=== PATIENT | male | born 1945 | race Caucasian/White ===

== ENCOUNTER 2020-11-15 13:57 | Outpatient (REF) | payer MEDICARE, SELFPAY ==
[2020-11-15 14:44] LABS: MANUAL DIFF FLAG NO
[2020-11-15 14:48] LABS: Basophils Absolute Auto 0.1 X10*3/uL (0.0-0.2); Basophils Percent Auto 0.6 % (0-2); Eosinophils Absolute Auto 0.6 X10*3/uL (0.0-0.4); Eosinophils Percent Auto 4.9 % (0-4); Hematocrit 49.8 % (42-52); Hemoglobin 16.4 g/dl (14.0-18.0); Imm Gran Abs Auto 0.04 X10*3/uL (0.00-0.03); Imm Gran Pct Auto 0.3 % (0.0-0.4); Lymphocytes Absolute Auto 3.9 X10*3/uL (1.2-4.9); Lymphocytes Percent Auto 32.3 % (20-40); Mean Corpuscular HGB Conc 32.9 g/dl (31.0-36.0); Mean Corpuscular Hemoglobin 29.5 pg (27.0-33.0); Mean Corpuscular Volume 89.6 fL (80-98); Mean Platelet Volume 11.4 fL (9.4-12.4); Monocytes Absolute Auto 1.2 X10*3/uL (0.1-1.2); Monocytes Percent Auto 9.6 % (2-11); Neutrophils Absolute Auto 6.3 X10*3/uL (2.0-8.3); Neutrophils Percent Auto 52.3 % (45-73); Platelet Count 248 X10*3/uL (160-400); Red Blood Count 5.56 X10*6/uL (4.60-5.80); Red Cell Distribution Width 14.3 % (11.0-16.0); White Blood Count 12.1 X10*3/uL (4.8-10.8)
[2020-11-15 15:13] LABS: Estimated Average Glucose 171 mg/dL; Hemoglobin A1c % 7.6 %
[2020-11-15 15:15] LABS: Alanine Aminotransferase 23 U/L (0-40); Albumin Level 4.2 g/dL (3.5-5.0); Alkaline Phosphatase 86 U/L (39-117); Anion Gap 14 (12-20); Aspartate Amino Transferase 19 U/L (5-37); Bilirubin Total 0.6 mg/dL (0.0-1.0); Blood Urea Nitrogen 20 mg/dL (9-16); Calcium 9.6 mg/dL (8.4-10.2); Carbon Dioxide 28 mmol/L (22-29); Chloride 105 mmol/L (96-108); Estimated Glomerular Filt Rate 56; Glucose Random 107 mg/dL (60-115); Potassium 4.9 mmol/l (3.3-5.1); Sodium 142 mmol/L (135-145); Total Protein 7.4 g/dL (6.5-8.0)
[2020-11-15 15:35] LABS: Prostate Specific Antigen 0.51 ng/mL (<0.05-4.0)
== END 2020-11-15 13:58 | disposition home or self-care (01) ==
LOC: HO.LAB 13:57
PROVIDERS: PCP Internal Medicine; Visit Provider Internal Medicine
DX: E11.22 Type 2 diabetes mellitus with diabetic chronic kidney disease (principal); I13.10 Hypertensive heart and chronic kidney disease without heart failure, with stage 1 through stage 4 chronic kidney disease, or unspecified chronic kidney disease; N18.9 Chronic kidney disease, unspecified; I25.10 Atherosclerotic heart disease of native coronary artery without angina pectoris; Z12.5 Encounter for screening for malignant neoplasm of prostate; Z85.46 Personal history of malignant neoplasm of prostate
CPT/HCPCS: 36415; 80053; 83036; 84153; 85025

== ENCOUNTER 2020-12-08 13:46 | Outpatient (REF) | payer MEDICARE, SELFPAY ==
[2020-12-08 15:24] LABS: Anion Gap 17 (12-20); Blood Urea Nitrogen 17 mg/dL (9-16); Carbon Dioxide 25 mmol/L (22-29); Chloride 103 mmol/L (96-108); Estimated Glomerular Filt Rate 57; Potassium 4.8 mmol/L (3.3-5.1); Sodium 140 mmol/L (135-145)
== END 2020-12-08 13:47 | disposition home or self-care (01) ==
LOC: HO.LAB 13:46
PROVIDERS: PCP Internal Medicine; Visit Provider Internal Medicine Hypertension Specialist
DX: N18.30 Chronic kidney disease, stage 3 unspecified (principal)
CPT/HCPCS: 36415; 80051; 82565; 84520

== ENCOUNTER 2021-01-18 11:26 | Outpatient (REF) | payer MEDICARE, SELFPAY ==
[2021-01-18 12:12] LABS: MANUAL DIFF FLAG NO
[2021-01-18 12:19] LABS: Basophils Absolute Auto 0.1 X10*3/uL (0.0-0.2); Basophils Percent Auto 0.5 % (0-2); Eosinophils Absolute Auto 0.5 X10*3/uL (0.0-0.4); Eosinophils Percent Auto 4.5 % (0-4); Hematocrit 47.3 % (42-52); Hemoglobin 15.4 g/dl (14.0-18.0); Imm Gran Abs Auto 0.03 X10*3/uL (0.00-0.03); Imm Gran Pct Auto 0.3 % (0.0-0.4); Lymphocytes Absolute Auto 3.4 X10*3/uL (1.2-4.9); Lymphocytes Percent Auto 28.3 % (20-40); Mean Corpuscular HGB Conc 32.6 g/dl (31.0-36.0); Mean Corpuscular Hemoglobin 29.7 pg (27.0-33.0); Mean Corpuscular Volume 91.3 fL (80-98); Mean Platelet Volume 11.4 fL (9.4-12.4); Monocytes Absolute Auto 1.1 X10*3/uL (0.1-1.2); Monocytes Percent Auto 9.4 % (2-11); Neutrophils Absolute Auto 6.8 X10*3/uL (2.0-8.3); Platelet Count 256 X10*3/uL (160-400); Red Blood Count 5.18 X10*6/uL (4.60-5.80); Red Cell Distribution Width 14.6 % (11.0-16.0); White Blood Count 11.9 X10*3/uL (4.8-10.8)
[2021-01-18 12:31] LABS: Estimated Average Glucose 166 mg/dL; Hemoglobin A1c % 7.4 %
[2021-01-18 13:33] LABS: B Type Natriuretic Peptide < 10 pg/mL (<100)
[2021-01-18 13:43] LABS: Alanine Aminotransferase 24 U/L (0-40); Albumin Level 4.4 g/dL (3.5-5.0); Alkaline Phosphatase 75 U/L (39-117); Anion Gap 16 (12-20); Aspartate Amino Transferase 17 U/L (5-37); Bilirubin Total 0.7 mg/dL (0.0-1.0); Blood Urea Nitrogen 24 mg/dL (9-16); Calcium 9.3 mg/dL (8.4-10.2); Carbon Dioxide 27 mmol/L (22-29); Chloride 101 mmol/L (96-108); Estimated Glomerular Filt Rate 46; Glucose Random 136 mg/dL (60-115); Potassium 4.1 mmol/L (3.3-5.1); Sodium 140 mmol/L (135-145); Total Protein 7.4 g/dL (6.5-8.0)
[2021-01-18 13:51] LABS: Thyroid Stimulating Hormone 1.79 uIU/mL (0.32-4.0)
== END 2021-01-18 11:27 | disposition home or self-care (01) ==
LOC: HO.LAB 11:26
PROVIDERS: PCP Internal Medicine; Visit Provider Internal Medicine
DX: R60.9 Edema, unspecified (principal); I12.9 Hypertensive chronic kidney disease with stage 1 through stage 4 chronic kidney disease, or unspecified chronic kidney disease; E11.22 Type 2 diabetes mellitus with diabetic chronic kidney disease; N18.9 Chronic kidney disease, unspecified
CPT/HCPCS: 36415; 80053; 83036; 83880; 84443; 85025

== ENCOUNTER 2021-02-14 15:38 | Outpatient (REF) | payer MEDICARE, SELFPAY ==
[2021-02-14 16:32] LABS: Anion Gap 13 (12-20); Blood Urea Nitrogen 15 mg/dL (9-16); Carbon Dioxide 25 mmol/L (22-29); Chloride 104 mmol/L (96-108); Estimated Glomerular Filt Rate > 60; Glucose Random 125 mg/dL (60-115); Potassium 4.2 mmol/L (3.3-5.1); Sodium 138 mmol/L (135-145)
== END 2021-02-14 15:39 | disposition home or self-care (01) ==
LOC: HO.LAB 15:38
PROVIDERS: PCP Internal Medicine; Visit Provider Internal Medicine
DX: I12.9 Hypertensive chronic kidney disease with stage 1 through stage 4 chronic kidney disease, or unspecified chronic kidney disease (principal); N18.9 Chronic kidney disease, unspecified; R60.0 Localized edema
CPT/HCPCS: 36415; 80048

== ENCOUNTER 2021-02-22 08:05 | Outpatient (REF) | payer MEDICARE, SELFPAY | END 2021-02-22 08:06 | disposition home or self-care (01) | LOC: HO.HOSX 08:05 | PROVIDERS: Visit Provider Physician Assistant | DX: Z13.89 Encounter for screening for other disorder (principal) ==

== ENCOUNTER 2021-02-28 08:05 | Outpatient (REF) | payer MEDICARE, SELFPAY ==
--- NOTE | ~2021-02-28 | XR_ITS ---
EXAMINATION: XR SHOULDER , LEFT CLINICAL INFORMATION: Pain COMPARISON: None available at the time of this dictation. TECHNIQUE: AP external rotation, Grashey, scapular Y, and axillary views of the shoulder. FINDINGS: BONES: Small cortical irregularity in the humeral head superiorly suggesting a small Hill sack which could be sequela of prior anterior dislocation. JOINTS: Glenohumeral joint is properly positioned. There is mild degenerative osteoarthritis of the acromioclavicular joint. SOFT TISSUE AND INCLUDED LUNG: Normal. XR/XR shoulder LT min 2V IMPRESSION: Subtle cortical irregularity in the humeral head superiorly suggesting Hill-Sachs deformity which can be a sequela of prior anterior dislocation. Mild DJD AC joint.
== END 2021-02-28 08:06 | disposition home or self-care (01) ==
LOC: HO.HOSX 08:05
PROVIDERS: Visit Provider Physician Assistant
DX: M75.42 Impingement syndrome of left shoulder (principal); E13.9 Other specified diabetes mellitus without complications
CPT/HCPCS: 20610; 73030; 99212; J1020

== ENCOUNTER 2021-05-30 14:49 | Outpatient (REF) | payer MEDICARE, SELFPAY ==
[2021-05-30 15:32] LABS: MANUAL DIFF FLAG NO
[2021-05-30 15:43] LABS: Basophils Absolute Auto 0.1 X10*3/uL (0.0-0.2); Basophils Percent Auto 0.4 % (0-2); Eosinophils Absolute Auto 0.5 X10*3/uL (0.0-0.4); Eosinophils Percent Auto 4.6 % (0-4); Hemoglobin 15.8 g/dl (14.0-18.0); Imm Gran Abs Auto 0.03 X10*3/uL (0.00-0.03); Imm Gran Pct Auto 0.3 % (0.0-0.4); Lymphocytes Absolute Auto 3.8 X10*3/uL (1.2-4.9); Lymphocytes Percent Auto 33.7 % (20-40); Mean Corpuscular HGB Conc 32.2 g/dl (31.0-36.0); Mean Corpuscular Hemoglobin 28.9 pg (27.0-33.0); Mean Corpuscular Volume 89.6 fL (80-98); Mean Platelet Volume 11.7 fL (9.4-12.4); Monocytes Absolute Auto 0.9 X10*3/uL (0.1-1.2); Monocytes Percent Auto 7.9 % (2-11); Neutrophils Percent Auto 53.1 % (45-73); Platelet Count 247 X10*3/uL (160-400); Red Blood Count 5.47 X10*6/uL (4.60-5.80); Red Cell Distribution Width 14.3 % (11.0-16.0); White Blood Count 11.3 X10*3/uL (4.8-10.8)
[2021-05-30 15:56] LABS: Alanine Aminotransferase 17 U/L (0-40); Alkaline Phosphatase 87 U/L (39-117); Anion Gap 12 (12-20); Aspartate Amino Transferase 17 U/L (5-37); Bilirubin Total 0.7 mg/dL (0.0-1.0); Blood Urea Nitrogen 19 mg/dL (9-16); Calcium 9.4 mg/dL (8.4-10.2); Carbon Dioxide 25 mmol/L (22-29); Chloride 105 mmol/L (96-108); Estimated Glomerular Filt Rate 56; Glucose Random 139 mg/dL (60-115); Potassium 4.3 mmol/L (3.3-5.1); Sodium 138 mmol/L (135-145); Total Protein 7.1 g/dL (6.5-8.0)
[2021-05-31 13:37] LABS: Calcium (PTHI) 9.3 mg/dL (8.6-10.3); PTHI 157 pg/mL (14-64)
== END 2021-05-30 14:50 | disposition home or self-care (01) ==
LOC: HO.LAB 14:49
PROVIDERS: PCP Internal Medicine; Visit Provider Internal Medicine Hypertension Specialist
DX: N18.31 Chronic kidney disease, stage 3a (principal)
CPT/HCPCS: 36415; 80053; 83970; 85025

== ENCOUNTER 2021-05-31 17:04 | Outpatient (REF) | payer MEDICARE, SELFPAY ==
--- NOTE | ~2021-05-31 | XR_ITS ---
EXAMINATION: XR FOREARM, LEFT CLINICAL INFORMATION: Pain. COMPARISON: None TECHNIQUE: AP and lateral views of the left forearm were obtained. FINDINGS: The bones and soft tissues are normal. No fracture. Imaged portions of the elbow and wrist are unremarkable. XR/XR forearm LT 2V IMPRESSION: Normal left forearm.
[2021-05-31 17:41] LABS: Basophils Absolute Auto 0.1 X10*3/uL (0.0-0.2); Basophils Percent Auto 0.6 % (0-2); Eosinophils Absolute Auto 0.5 X10*3/uL (0.0-0.4); Eosinophils Percent Auto 4.1 % (0-4); Hematocrit 47.6 % (42-52); Hemoglobin 15.5 g/dl (14.0-18.0); Imm Gran Abs Auto 0.05 X10*3/uL (0.00-0.03); Imm Gran Pct Auto 0.4 % (0.0-0.4); Lymphocytes Absolute Auto 3.2 X10*3/uL (1.2-4.9); Lymphocytes Percent Auto 25.7 % (20-40); MANUAL DIFF FLAG NO; Mean Corpuscular HGB Conc 32.6 g/dl (31.0-36.0); Mean Corpuscular Hemoglobin 29.1 pg (27.0-33.0); Mean Corpuscular Volume 89.3 fL (80-98); Mean Platelet Volume 11.3 fL (9.4-12.4); Monocytes Percent Auto 7.7 % (2-11); Neutrophils Absolute Auto 7.6 X10*3/uL (2.0-8.3); Neutrophils Percent Auto 61.5 % (45-73); Platelet Count 239 X10*3/uL (160-400); Red Blood Count 5.33 X10*6/uL (4.60-5.80); Red Cell Distribution Width 14.6 % (11.0-16.0); White Blood Count 12.3 X10*3/uL (4.8-10.8)
[2021-05-31 18:01] LABS: Estimated Average Glucose 180 mg/dL; Hemoglobin A1c % 7.9 %
[2021-05-31 18:03] LABS: Alanine Aminotransferase 17 U/L (0-40); Alkaline Phosphatase 86 U/L (39-117); Anion Gap 15 (12-20); Aspartate Amino Transferase 17 U/L (5-37); Bilirubin Total 0.6 mg/dL (0.0-1.0); Blood Urea Nitrogen 18 mg/dL (9-16); C Reactive Protein 2.84 mg/dL (< or = 0.50); Calcium 9.4 mg/dL (8.4-10.2); Carbon Dioxide 23 mmol/L (22-29); Chloride 107 mmol/L (96-108); Estimated Glomerular Filt Rate 56; Glucose Random 141 mg/dL (60-115); Potassium 4.8 mmol/L (3.3-5.1); Sodium 140 mmol/L (135-145); Total Protein 7.1 g/dL (6.5-8.0)
[2021-05-31 18:23] LABS: Thyroid Stimulating Hormone 1.27 uIU/mL (0.32-4.0)
== END 2021-05-31 17:05 | disposition home or self-care (01) ==
LOC: HO.XRAY 17:04
PROVIDERS: PCP Internal Medicine; Visit Provider Internal Medicine
DX: M79.632 Pain in left forearm (principal); R60.0 Localized edema; N18.9 Chronic kidney disease, unspecified; E11.9 Type 2 diabetes mellitus without complications; Z91.81 History of falling
CPT/HCPCS: 36415; 73090; 80053; 83036; 84443; 85025; 86140

== ENCOUNTER 2021-06-21 08:15 | Outpatient (REF) | payer MEDICARE, SELFPAY ==
--- NOTE | ~2021-06-21 | XR_ITS ---
EXAMINATION: XR SHOULDER, RIGHT CLINICAL INFORMATION: Right shoulder pain. COMPARISON: None. TECHNIQUE: 3 views of the right shoulder. FINDINGS: There is no evidence of acute fracture or dislocation of the right shoulder. There is spurring about the glenohumeral joint without significant narrowing present. No evidence of calcific tendinitis. No acute fracture or dislocation. There is some degenerative spurring about the acromioclavicular joint without evidence of the coracoclavicular space. XR/XR shoulder RT min 2V IMPRESSION: No acute fracture or dislocation of the right shoulder. Degenerative spurring about the glenohumeral joint.
== END 2021-06-21 08:16 | disposition home or self-care (01) ==
LOC: HO.HOSX 08:15
PROVIDERS: Visit Provider Physician Assistant
DX: M25.511 Pain in right shoulder (principal); M54.12 Radiculopathy, cervical region; R20.0 Anesthesia of skin; R20.2 Paresthesia of skin
CPT/HCPCS: 73030; 99212

== ENCOUNTER → 2021-07-23 13:46 | Outpatient (BNVA) | payer MEDICARE, SELFPAY | PROVIDERS: PCP Internal Medicine; Visit Provider Internal Medicine | DX: M54.12 Radiculopathy, cervical region (principal); M96.1 Postlaminectomy syndrome, not elsewhere classified; M48.062 Spinal stenosis, lumbar region with neurogenic claudication | CPT/HCPCS: 99202 ==

== ENCOUNTER 2021-08-08 13:24 | Outpatient (REF) | payer MEDICARE, SELFPAY | END 2021-08-08 13:25 | disposition home or self-care (01) | LOC: HO.MRI 13:24 | PROVIDERS: PCP Internal Medicine; Visit Provider Internal Medicine | DX: Z13.89 Encounter for screening for other disorder (principal) ==

== ENCOUNTER 2021-08-30 09:37 | Outpatient (REF) | payer MEDICARE, SELFPAY ==
--- NOTE | 2021-08-30 09:39 | EMG_ITS ---
Bilateral median and ulnar motor and sensory studies were performed. Bilateral radial sensory studies were performed and paraspinal muscles were tested with a needle. IMPRESSION: There was no evidence of cervical radiculopathy. The test revealed [id number] bilateral median neuropathy across carpal tunnel and mild bilateral ulnar neuropathy across cubital tunnel. 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 MD ELAI Montes/IVAN / [id number]
== END 2021-08-30 09:38 | disposition home or self-care (01) ==
LOC: HO.NEURO 09:37
PROVIDERS: PCP Internal Medicine; Visit Provider Physician Assistant
DX: R20.0 Anesthesia of skin (principal); R20.2 Paresthesia of skin
CPT/HCPCS: 95886; 95911

== ENCOUNTER → 2021-08-31 11:01 | Outpatient (BNVA) | payer MEDICARE, SELFPAY | PROVIDERS: PCP Internal Medicine; Visit Provider Internal Medicine | DX: M47.812 Spondylosis without myelopathy or radiculopathy, cervical region (principal); M48.062 Spinal stenosis, lumbar region with neurogenic claudication; G56.03 Carpal tunnel syndrome, bilateral upper limbs | CPT/HCPCS: Q3014 ==

== ENCOUNTER 2021-09-13 14:17 | Outpatient (REF) | payer MEDICARE, SELFPAY ==
--- NOTE | ~2021-09-13 | XR_ITS ---
EXAMINATION: XR CERVICAL SPINE CLINICAL INFORMATION: Spondylosis without myelopathy or radiculopathy. COMPARISON: None TECHNIQUE: Cervical spine, 4 views FINDINGS: The craniocervical junction is normal. The dens and atlantodental articulation are intact. There is degenerative osseous spurring at the atlantodental articulation. The cervical vertebra have normal height. No fractures are seen within either anterior or posterior elements. The C6 and C7 vertebra are suboptimally visualized on the lateral views due to overlap of the bones with the soft tissues. There is multilevel anterior vertebral osteophyte formation of the cervical spine. Multilevel facet osteoarthritis is present, including C2-C3, C3-C4 and C4-C5. No prevertebral soft tissue swelling. The visualized lung apices are normal. XR/XR cervical spine 3V IMPRESSION: * There are mild and moderate discovertebral degenerative changes of the cervical spine. Also, multilevel facet osteoarthritis is present. * No evidence of cervical spine fracture or malalignment.
== END 2021-09-13 14:18 | disposition home or self-care (01) ==
LOC: HO.XRAY 14:17
PROVIDERS: PCP Internal Medicine; Visit Provider Internal Medicine
DX: M47.812 Spondylosis without myelopathy or radiculopathy, cervical region (principal)
CPT/HCPCS: 72040

== ENCOUNTER → 2021-09-19 12:10 | Outpatient (BNVA) | payer MEDICARE, SELFPAY | PROVIDERS: PCP Internal Medicine; Visit Provider Orthopaedic Surgery | DX: G56.03 Carpal tunnel syndrome, bilateral upper limbs (principal) | CPT/HCPCS: 99202 ==

== ENCOUNTER 2021-10-15 13:39 | Outpatient (REF) | payer MEDICARE, SELFPAY ==
[2021-10-15 15:44] LABS: Anion Gap 14 (12-20); Blood Urea Nitrogen 20 mg/dL (9-16); Calcium 9.9 mg/dL (8.4-10.2); Carbon Dioxide 23 mmol/L (22-29); Chloride 107 mmol/L (96-108); Estimated Glomerular Filt Rate 56; Potassium 4.6 mmol/L (3.3-5.1); Sodium 139 mmol/L (135-145)
== END 2021-10-15 13:40 | disposition home or self-care (01) ==
LOC: HO.LAB 13:39
PROVIDERS: Absent Provider Internal Medicine Hypertension Specialist; PCP Internal Medicine; Visit Provider Internal Medicine
DX: M96.1 Postlaminectomy syndrome, not elsewhere classified (principal); M48.062 Spinal stenosis, lumbar region with neurogenic claudication; M54.12 Radiculopathy, cervical region; E11.22 Type 2 diabetes mellitus with diabetic chronic kidney disease; I12.9 Hypertensive chronic kidney disease with stage 1 through stage 4 chronic kidney disease, or unspecified chronic kidney disease; N18.31 Chronic kidney disease, stage 3a; Z91.041 Radiographic dye allergy status; Z91.013 Allergy to seafood; Z91.09 Other allergy status, other than to drugs and biological substances; Z79.4 Long term (current) use of insulin; Z79.899 Other long term (current) drug therapy
CPT/HCPCS: 36415; 80051; 82310; 82565; 84520; 99212

== ENCOUNTER 2021-12-19 12:15 | Day surgery (SDC) | payer MEDICARE, SELFPAY ==
[2021-11-22 15:14] VITALS: BMI 37.8
--- NOTE | 2021-12-18 11:57 | P.CONAN_ITS ---
Documented by User: Deirdre Bolanos NP 12/18/21 11:59 HPI - Anesthesia Eval Consult details Narrative: 76yo M for Bilateral Minimally invasive lumbar decompression PMFSH Active Problems Active Problems: All Active Problems (Updated 12/18/21 @ 10:45 by Taya Shahid, TANIA) Impingement syndrome of left shoulder (Acute) Diabetes 1.5, managed as type 2 (Acute) Cervical radicular pain (Acute) Carpal tunnel syndrome, bilateral (Acute) Cervical spondylosis (Acute) Spinal stenosis, lumbar region with neurogenic claudication (Acute) Post laminectomy syndrome (Acute) Cervical radiculopathy (Acute) Past Medical History Medical History (Updated 12/18/21 @ 10:45 by Taya Shahid RN) Cataract Cervical radiculopathy Depression GERD (gastroesophageal reflux disease) Hard of hearing High blood pressure IBS (irritable bowel syndrome) 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 Malignant neoplasm of prostate Myocardial infarction Osteoarthritis 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, lumbar region with neurogenic claudication Stage 3 chronic kidney disease Surgical History Surgical History (Updated 11/22/21 @ 15:18 by Tonya Grigsby RN) History of back surgery Hx of colonoscopy Hx of neck surgery Social History Social History Patient Tobacco Use Status: Tobacco use Unknown Are you DNR?: No Advance Directives: No Advance Directives Information Provided: Yes Advance Directives on File: No Current occupational status: retired Current occupation: right hand Meds Allergies Allergy/AdvReac Type Severity Reaction Status Date / Time shellfish derived Allergy Severe SWELLING Verified 11/22/21 15:16 LYMPH GLANDS - BAD RXN Iodinated Contrast Media Allergy Unknown HIVES Verified 11/22/21 15:16 [CONTRAST,IV] ENVIRONMENTAL AdvReac Intermediate NASAL Uncoded 11/22/21 15:16 CONGESTION Home Medications Medication Instructions Recorded Confirmed Last Taken Type aspirin 81 mg tablet,delayed 81 mg PO DAILY 07/23/21 11/22/21 Unknown History release (Adult Aspirin Regimen) clonazepam 1 mg tablet 1 mg PO BID 07/23/21 11/22/21 Unknown History doxepin 25 mg capsule 25 mg PO DAILY 07/23/21 11/22/21 Unknown History insulin aspart U-100 100 unit/mL 20 unit SUBCUT TID 07/23/21 11/22/21 Unknown History (3 mL) subcutaneous pen (Novolog Flexpen U-100 Insulin aspart) insulin glargine 100 unit/mL 60 unit SUBCUT .hs ml 07/23/21 11/22/21 Unknown History subcutaneous solution (Lantus U-100 Insulin) lisinopril 40 mg tablet 40 mg PO DAILY 07/23/21 11/22/21 Unknown History nifedipine 30 mg tablet,extended 30 mg PO DAILY 07/23/21 11/22/21 Unknown History release prochlorperazine maleate 10 mg 10 mg PO BID 07/23/21 11/22/21 Unknown History tablet tramadol 50 mg tablet 50 mg PO BID PRN 07/23/21 11/22/21 Unknown History Exam Exam Date and Time: December 18, 2021 1157 Height,Weight and Vital Signs: Height 6 ft Weight 126.552 kg Documented by User: Allen Neville MD 12/19/21 13:02 [facility] Past Medical History Medical History (Updated 12/18/21 @ 10:45 by Taya Shahid RN) Cataract Cervical radiculopathy Depression GERD (gastroesophageal reflux disease) Hard of hearing High blood pressure IBS (irritable bowel syndrome) 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 Malignant neoplasm of prostate Myocardial infarction Osteoarthritis 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, lumbar region with neurogenic claudication Stage 3 chronic kidney disease Family History Family history of problems with anesthesia: No Surgical History Surgical History (Updated 11/22/21 @ 15:18 by Tonya Grigsby, TANIA) History of back surgery Hx of colonoscopy Hx of neck surgery History of Problems with Anesthesia: No Social History Social History Patient Tobacco Use Status: Tobacco use Unknown Are you DNR?: No Advance Directives: No Advance Directives Information Provided: Yes Advance Directives on File: No Current occupational status: retired Current occupation: right hand Meds Allergies Allergy/AdvReac Type Severity Reaction Status Date / Time shellfish derived Allergy Severe SWELLING Verified 11/22/21 15:16 LYMPH GLANDS - BAD RXN Iodinated Contrast Media Allergy Unknown HIVES Verified 11/22/21 15:16 [CONTRAST,IV] ENVIRONMENTAL AdvReac Intermediate NASAL Uncoded 11/22/21 15:16 CONGESTION Home Medications Medication Instructions Recorded Confirmed Last Taken Type aspirin 81 mg tablet,delayed 81 mg PO DAILY 07/23/21 11/22/21 Unknown History release (Adult Aspirin Regimen) clonazepam 1 mg tablet 1 mg PO BID 07/23/21 11/22/21 Unknown History doxepin 25 mg capsule 25 mg PO DAILY 07/23/21 11/22/21 Unknown History insulin aspart U-100 100 unit/mL 20 unit SUBCUT TID 07/23/21 11/22/21 Unknown History (3 mL) subcutaneous pen (Novolog Flexpen U-100 Insulin aspart) insulin glargine 100 unit/mL 60 unit SUBCUT .hs ml 07/23/21 11/22/21 Unknown History subcutaneous solution (Lantus U-100 Insulin) lisinopril 40 mg tablet 40 mg PO DAILY 07/23/21 11/22/21 Unknown History nifedipine 30 mg tablet,extended 30 mg PO DAILY 07/23/21 11/22/21 Unknown History release prochlorperazine maleate 10 mg 10 mg PO BID 07/23/21 11/22/21 Unknown History tablet tramadol 50 mg tablet 50 mg PO BID PRN 07/23/21 11/22/21 Unknown History Exam Airway Mallampati Class: II TM Dist: >3cm Neck ROM: Full Denture: Upper and Lower Assessment and Plan Assessment Anesthesia Assessment: Anesthesia Plan Discussed and Chart Reviewed Final Anesthetic Review Family History of Problems with Anesthesia: No History of Problems with Anesthesia: No NPO: Yes ASA Class: III Final Preanesthetic Review: No Changes in Pt Med Stat, Meds/Allgs Chart Reviewed, Consent Obtained/Reviewed and Anes Risks/Benef Reviewed Patient Risk: Intermediate Procedure Risk: Low Anesthetic Plan Anesthetic Plan: MAC: Disposition: Standard PACU
--- NOTE | ~2021-12-19 | FL_ITS ---
EXAMINATION: XR FLUOROSCOPY WITH IMAGES CLINICAL INFORMATION: Minimally invasive lumbar decompression (mild procedure). COMPARISON: None. TECHNIQUE: Fluoroscopy performed by Dr. Felix Kuo. Fluoroscopy time: 13.3 minutes DAP: 87.0 Gycm2 Images: 11 FINDINGS: Multiple fluoroscopic images demonstrate trocar and cannula overlying mid lumbar spine with tip at left and right interlaminar positions, respectively. No acute bony abnormality noted. FL/FL guidance in OR IMPRESSION: Fluoroscopy for pain management procedure.
[2021-12-19 12:51] VITALS: BP 180/102; PULSE 104; RESP 16; TEMP 36.9; O2SAT 97
[2021-12-19 13:00] VITALS: BP 187/94; PULSE 101
[2021-12-19 13:01] LABS: Glucose, Whole Blood 252 mg/dL (60-115)
[2021-12-19] MEDS: Lactated Ringers 1,000 ML 50 ML IVCONT (13:16)
[2021-12-19 15:20] VITALS: BP 146/64; PULSE 57; RESP 22; TEMP 36.3; O2SAT 95
--- NOTE | 2021-12-19 15:31 | MHC.SHP ---
Pre-Procedural Eval Section A Date of Service: 12/19/21 The patient is an INPATIENT: No Changes since office visit: Yes Patient answered all questions The History & Physical has been completed within 30 days and I have reviewed it.: Yes Section B Chief Complaint: spinal stenosis,lumbar region Relevant Family History (Specify if Yes): No Relevant Social History: None Present Medications: None Medical History: Significant History (spinal stenosis) History of Previous Operations: No relevant previous surgery Allergies: Allergies Allergy/AdvReac Type Severity Reaction Status Date / Time shellfish derived Allergy Severe SWELLING Verified 11/22/21 15:16 LYMPH GLANDS - BAD RXN Iodinated Contrast Media Allergy Unknown HIVES Verified 11/22/21 15:16 [CONTRAST,IV] ENVIRONMENTAL AdvReac Intermediate NASAL Uncoded 11/22/21 15:16 CONGESTION Plan Diagnosis/Plan: Unchanged I have reviewed the history and physical and performed a pertinent physical examination on my patient. No changes have occurred unless specified.
[2021-12-19 15:35] VITALS: BP 140/70; PULSE 62; RESP 16; O2SAT 97
--- NOTE | 2021-12-19 15:36 | PM.OP ---
Brief Operative Note Date of Service: 12/19/21 Pre-op diagnosis: Lumbar spinal stenosis with neurogenic claudication Post-op diagnosis: same Procedure: Minimally invasive lumbar decompression, L-3/4, bilateral Surgeon: Duane Gonzalez MD Anesthesia: MAC Was an Production Operations Manager used for this Procedure?: No Estimated blood loss (mL): 5 Pathology: none sent Condition: stable Disposition: PACU
--- NOTE | 2021-12-19 15:37 | P.OP_ITS ---
Operative Note Operative Note Date of Service: 12/19/21 Narrative: Minimally Invasive Lumbar Decompression, Bilateral, L-3/4 After informed consent, patient was brought to the operating room. The patient was placed in the prone position in the fluoroscopy suite with blankets (bolster) under the hips to assist with reversing lordosis of the spine. Following IV sedation and antibiotic administration, the patient was prepped and draped in my usual standard fashion. Time-out was performed to confirm site and level of intervention. Ample amounts of local anesthetic were used to anesthetize the skin and deep facial planes after topographical landmarks were identified. Procedural safety barriers were established by utilizing a contralateral oblique (REBECCA) view to visualize the ventral interlaminar line (VILL). Instruments remained posterior to the VILL during the percutaneous lumbar decompression procedure. A small midline incision was made with a sharp scalpel blade, and a trocar with portal was inserted percutaneously under fluoroscopic guidance to contact the la naila indicated. The trocar and portal were tugged to the right side to approach the right interlaminar space first. A bone-sculpting rongeur was inserted to remove adequate amounts of lamina (laminotomy) from the superior surface of the inferior operative lamina site and from the inferior aspect of the lamina above it. The laminotomy created a passage for the tissue sculpting instrument used in debulking the ligamentum flavum. The ligamentum flavum was debulked until diminished returns. A similar procedure was performed on the contralateral side. There were no complications or difficulties noted with these procedures. Upon completion of the procedure, instruments were removed, hemostasis was achieved by direct pressure, and wound closure was performed with dermabond and steristrips. The patient tolerated the procedure well. Upon transferring the patient to the recovery room, the patient?s vital signs remained stable and without any neurologic deficits. A brief neurological exam was performed and showed adequate strength and no loss of sensation in the lower extremities. The patient was discharged with instructions to rest, continue with ice, and to demonstrate progressive mobility. The patient was given a follow-up exam time and date along with instructions and contact information for any questions or concerns. The patient is to be followed up in the office for further evaluation and treatment, as deemed appropriate and necessary, and for any concerns regarding the procedure.
[2021-12-19 15:50] VITALS: BP 153/66; PULSE 60; RESP 16; O2SAT 97
[2021-12-19 16:05] VITALS: BP 137/75; PULSE 64; RESP 16; TEMP 36.3; O2SAT 97
== END 2021-12-19 16:55 | disposition home or self-care (01) ==
PROVIDERS: PCP Internal Medicine; Visit Provider Internal Medicine
PROC: (CPT 0275T; principal; 2021-12-19 13:40)
DX: M48.062 Spinal stenosis, lumbar region with neurogenic claudication (principal); Z00.6 Encounter for examination for normal comparison and control in clinical research program
CPT/HCPCS: 0275T; 82947; C1889; J0690; J2250; J3010

== ENCOUNTER 2022-04-11 14:56 | Outpatient (REF) | payer MEDICARE, SELFPAY ==
[2022-04-11 15:49] LABS: Alanine Aminotransferase 20 U/L (0-40); Alkaline Phosphatase 92 U/L (39-117); Anion Gap 14 (12-20); Aspartate Amino Transferase 16 U/L (5-37); Bilirubin Total 0.6 mg/dL (0.0-1.0); Blood Urea Nitrogen 24 mg/dL (9-16); Calcium 9.2 mg/dL (8.4-10.2); Carbon Dioxide 25 mmol/L (22-29); Chloride 105 mmol/L (96-108); Estimated Glomerular Filt Rate 50; Glucose Random 193 mg/dL (60-115); Potassium 4.7 mmol/L (3.3-5.1); Sodium 139 mmol/L (135-145); Total Protein 7.3 g/dL (6.5-8.0)
== END 2022-04-11 14:57 | disposition home or self-care (01) ==
LOC: HO.LAB 14:56
PROVIDERS: PCP Internal Medicine; Visit Provider Internal Medicine Hypertension Specialist
DX: I12.9 Hypertensive chronic kidney disease with stage 1 through stage 4 chronic kidney disease, or unspecified chronic kidney disease (principal); N18.9 Chronic kidney disease, unspecified
CPT/HCPCS: 36415; 80053

== ENCOUNTER 2022-06-19 15:53 | Outpatient (REF) | payer MEDICARE, SELFPAY ==
[2022-06-19 16:19] LABS: MANUAL DIFF FLAG NO
[2022-06-19 17:03] LABS: Basophils Absolute Auto 0.1 X10*3/uL (0.0-0.2); Basophils Percent Auto 0.8 % (0-2); Eosinophils Absolute Auto 0.6 X10*3/uL (0.0-0.4); Eosinophils Percent Auto 4.6 % (0-4); Hematocrit 52.1 % (42.0-52.0); Hemoglobin 17.4 g/dl (14.0-18.0); Imm Gran Abs Auto 0.04 X10*3/uL (0.00-0.03); Imm Gran Pct Auto 0.3 % (0.0-0.4); Lymphocytes Absolute Auto 3.1 X10*3/uL (1.2-4.9); Lymphocytes Percent Auto 24.7 % (20-40); Mean Corpuscular HGB Conc 33.4 g/dl (31.0-36.0); Mean Corpuscular Hemoglobin 29.5 pg (27.0-33.0); Mean Corpuscular Volume 88.3 fL (80.0-98.0); Mean Platelet Volume 11.6 fL (9.4-12.4); Monocytes Absolute Auto 0.9 X10*3/uL (0.1-1.2); Monocytes Percent Auto 7.1 % (2-11); Neutrophils Absolute Auto 7.9 x10*3/uL (2.0-8.3); Neutrophils Percent Auto 62.5 % (45-73); Platelet Count 260 X10*3/uL (160-400); Red Cell Distribution Width 13.7 % (11.0-16.0); White Blood Count 12.6 X10*3/uL (4.8-10.8)
[2022-06-19 17:11] LABS: Estimated Average Glucose 157 mg/dL; Hemoglobin A1c % 7.1 %
[2022-06-19 17:25] LABS: Alanine Aminotransferase 22 U/L (0-40); Albumin Level 4.3 g/dL (3.5-5.0); Alkaline Phosphatase 105 U/L (39-117); Anion Gap 19 (12-20); Aspartate Amino Transferase 18 U/L (5-37); Bilirubin Total 0.5 mg/dL (0.0-1.0); Blood Urea Nitrogen 20 mg/dL (9-16); Calcium 9.1 mg/dL (8.4-10.2); Carbon Dioxide 21 mmol/L (22-29); Chloride 103 mmol/L (96-108); Estimated Glomerular Filt Rate 46; Glucose Random 227 mg/dL (60-115); Potassium 4.5 mmol/L (3.3-5.1); Sodium 138 mmol/L (135-145); Total Protein 7.8 g/dL (6.5-8.0)
[2022-06-19 17:31] LABS: Appearance Urine Clear; Color Urine DK YELLOW; Glucose Urine UA 100 mg/dL (Negative); Leukocyte Esterase Urine Negative (Negative); Nitrite Urine Negative (Negative); PH 5.5 (5.0-8.0); Specific Gravity - Urine 1.025 (1.005-1.025); Urine Blood Negative (Negative); Urine Ketones Negative (Negative); Urine Protein Negative (Neg-Trace)
== END 2022-06-19 15:54 | disposition home or self-care (01) ==
LOC: HO.LAB 15:53
PROVIDERS: PCP Internal Medicine; Visit Provider Internal Medicine
DX: E11.22 Type 2 diabetes mellitus with diabetic chronic kidney disease (principal); M54.9 Dorsalgia, unspecified; N18.9 Chronic kidney disease, unspecified; R30.0 Dysuria
CPT/HCPCS: 36415; 80053; 81003; 83036; 85025; 87086

== ENCOUNTER 2022-06-20 13:56 | Outpatient (REF) | payer MEDICARE, SELFPAY ==
--- NOTE | ~2022-06-20 | US_ITS ---
EXAMINATION: US RETROPERITONEAL COMPLETE (RENAL) CLINICAL INFORMATION: Dysuria, back pain, rule out obstruction. COMPARISON: CT abdomen and pelvis 03/23/2013. US retroperitoneal complete (renal) 11/17/2012. TECHNIQUE: Real-time imaging of the kidneys and bladder. FINDINGS: RIGHT KIDNEY: 11.2 x 5.3 x 4.6 cm (SAG x AP x TRV). The kidney is normal in size, contour, and echogenicity. Renal cortical thickness is normal. No calculi or focal parenchymal lesions. No hydronephrosis. LEFT KIDNEY: 11.0 x 5.2 x 6.2 cm (SAG x AP x TRV). The kidney is normal in size, contour, and echogenicity. Renal cortical thickness is normal. There are 3 cysts, largest measuring 3.1 x 2.1 x 2.4 cm in the lower pole. No renal calculi or hydronephrosis. BLADDER: The bladder is normal. Bilateral ureteral jets are demonstrated. Prevoid bladder volume is 295 mL. Postvoid bladder volume is 10.8 mL. US/US retroperitoneal comp IMPRESSION: Small left renal cysts otherwise unremarkable exam.
== END 2022-06-20 13:57 | disposition home or self-care (01) ==
LOC: HO.US 13:56
PROVIDERS: PCP Internal Medicine; Visit Provider Internal Medicine
DX: R30.0 Dysuria (principal); M54.9 Dorsalgia, unspecified
CPT/HCPCS: 76770